=== PATIENT | male | born 1990 | race Caucasian/White ===

== ENCOUNTER 2016-11-24 13:20 | Emergency (ER) | payer SELFPAY ==
[2016-11-24] MEDS ORDERED: NUVIGIL250 MG PO ×2 (13:30→14:54)
[2016-11-24] MEDS ORDERED: HYDROCODONE BIT1 T36 PO (13:32)
[2016-11-24] MEDS ORDERED: NORCO 7.5-3251 EACH PO (14:54)
[2016-11-24 15:04] VITALS: BP 120/66
== END 2016-11-24 15:00 | disposition home or self-care (01) ==
LOC: ED 13:20
DX: S20.211A Contusion of right front wall of thorax, initial encounter (principal); S20.311A Abrasion of right front wall of thorax, initial encounter; S90.31XA Contusion of right foot, initial encounter; S80.02XA Contusion of left knee, initial encounter; V49.9XXA Car occupant (driver) (passenger) injured in unspecified traffic accident, initial encounter; Y92.410 Unspecified street and highway as the place of occurrence of the external cause; G10 Huntington's disease; G47.419 Narcolepsy without cataplexy; R23.4 Changes in skin texture